=== PATIENT | female | born 1990 | race Caucasian/White ===

== ENCOUNTER 2017-01-18 17:58 | Emergency (ER) | payer OTHER ==
[~2017-01-18] VITALS: Ht 170.2 cm; Wt 57.2 kg
[2017-01-18] MEDS ORDERED: IV NORMAL SALINE 1000ML BAG 1,000 ML IV SCH (18:54)
--- NOTE | 2017-01-18 18:59 | PHYS DOC ---
Past Medical History Past Medical History: No Pertinent History Past Surgical History: Tonsillectomy Alcohol Use: None Drug Use: None Adult General Chief Complaint Chief Complaint: ABDOMINAL PAIN IN HPI HPI Patient is a 26 year old female who presents with complaint of nausea and vomiting. Patient is proximally 6 weeks estimated gestational age with last menstrual period on December 05, 2016 presents to the emergency department with complaint of persistent nausea and vomiting since today. Patient states that she has had mild nausea over the past couple weeks but symptoms started getting significantly worse today. Patient denies any abdominal pain or vaginal bleeding associated with symptoms. Patient has not taken any medications to help with her symptoms. Patient states that she is currently seeking a homebirth midwife for care as she plans on doing a home with her . Review of Systems Review of Systems Constitutional: Denies fever or chills [] Eyes: Denies change in visual acuity, redness, or eye pain [] HENT: Denies nasal congestion or sore throat [] Respiratory: Denies cough or shortness of breath [] Cardiovascular: No additional information not addressed in HPI [] GI: Nausea, vomiting, denies abdominal pain, bloody stools or diarrhea [] : Denies dysuria or hematuria [] Musculoskeletal: Denies back pain or joint pain [] Integument: Denies rash or skin lesions [] Neurologic: Denies headache, focal weakness or sensory changes [] ] Current Medications Current Medications Current Medications Medications (Trade) Dose Ordered Sig/[facility] Start Time Stop Time Status Last Admin Dose Admin Ondansetron HCl 4 mg 4 mg 1X ONCE 01/18/17 19:00 01/18/17 19:01 DC 01/18/17 19:19 4 MG Sodium Chloride (Iv Sodium Chloride 0.9% 1000ml Bag) 1,000 ml @ 1,000 mls/hr Q1H 01/18/17 18:54 01/18/17 19:53 DC 01/18/17 18:54 1,000 MLS/HR Allergies Allergies Allergies Coded Allergies Type Severity Reaction Last Updated Verified Penicillins Allergy Unknown 01/18/17 Yes Sulfa (Sulfonamide Antibiotics) Allergy Unknown 01/18/17 Yes Physical Exam Physical Exam Constitutional: Alert, afebrile, appears ill. [] HENT: Normocephalic, atraumatic, bilateral external ears normal, oropharynx moist, no oral exudates, nose normal. [] Eyes: PERRLA, EOMI, conjunctiva normal, no discharge. [] Neck: Normal range of motion, no tenderness, supple, no stridor. [] Cardiovascular:Heart rate regular rhythm, no murmur [] Lungs & Thorax: Bilateral breath sounds clear to auscultation [] Abdomen: Bowel sounds normal, soft, no tenderness, no masses, no pulsatile masses. Pelvic: Normal external exam, no purulent discharge in vaginal canal, cervical os closed, no cervical motion tenderness, mild midline tenderness to palpation on bimanual exam, no adnexal tenderness [] Skin: Warm, dry, no erythema, no rash. [] Back: No tenderness, no CVA tenderness. [] Extremities: No tenderness, no cyanosis, no clubbing, ROM intact, no edema. [] Neurologic: Alert and oriented X 3, normal motor function, normal sensory function, no focal deficits noted. [] Current Patient Data Vital Signs Vital Signs Date Time Temp Pulse Resp B/P Pulse Ox O2 Delivery O2 Flow Rate FiO2 01/18/17 20:40 90 14 95/53 99 Room Air 01/18/17 18:02 98.2 98.2 Lab Values Laboratory Tests Test 01/18/17 18:25 01/18/17 19:22 Maternal Serum HCG Beta Subunit 89539mYP/mL (0-6) H Sodium Level 136mmol/L (136-145) Potassium Level 4.0mmol/L (3.5-5.1) Chloride Level 100mmol/L (98-107) Carbon Dioxide Level 19mmol/L (21-32) L Anion Gap 17 (6-14) H Blood Urea Nitrogen 11mg/dL (7-20) Creatinine 0.8mg/dL (0.6-1.0) Estimated GFR (Cockcroft-Gault) 88.1 BUN/Creatinine Ratio 14 (6-20) Glucose Level 88mg/dL (70-99) Calcium Level 10.0mg/dL (8.5-10.1) Magnesium Level 2.0mg/dL (1.8-2.4) Total Bilirubin 0.8mg/dL (0.2-1.0) Aspartate Amino Transferase (AST) 15U/L (15-37) Alanine Aminotransferase (ALT) 17U/L (14-59) Alkaline Phosphatase 93U/L (46-116) Total Protein 9.3g/dL (6.4-8.2) H Albumin 5.0g/dL (3.4-5.0) Albumin/Globulin Ratio 1.2 (1.0-1.7) Urine Collection Type Unknown Urine Color Yellow Urine Clarity Clear Urine pH 5.5 Urine Specific [place] >=1.030 Urine Protein 30mg/dL (NEG-TRACE) Urine Glucose (UA) Negativemg/dL (NEG) Urine Ketones (Stick) >=80mg/dL (NEG) Urine Blood Negative (NEG) Urine Nitrite Negative (NEG) Urine Bilirubin Negative (NEG) Urine Urobilinogen Dipstick 0.2mg/dL (0.2 mg/dL) Urine Leukocyte Esterase Negative (NEG) Urine RBC Occ/HPF (0-2) Urine WBC 1-4/HPF (0-4) Urine Squamous Epithelial Cells Many/LPF Urine Bacteria Few/HPF (0-FEW) Urine Mucus Marked/LPF Laboratory Tests 01/18/17 18:25 Microbiology 01/18/17 Wet Prep - Final, Complete Microbiology 01/18/17 Wet Prep - Final, Complete EKG EKG Not performed [] Radiology/Procedures Radiology/Procedures [facility] [address] [place], [place] [id number] IMAGING REPORT Signed PATIENT: BAL PATINO ACCOUNT: [id number] : 1990 LOCATION: ER AGE: 26 SEX: F EXAM STATUS: REG ER ORD. PHYSICIAN: EMILY MCGINNIS MD REASON: patient is proximate 6 weeks , confirmed intrauterine PROCEDURE: OB <14 WKS W/TV PROCEDURE OB ultrasound less than 14 weeks to include transabdominal and transvaginal imaging 01/18/2017 HISTORY First trimester with pelvic pain. TECHNIQUE Using the distended urinary bladder as a sonographic window, a real-time ultrasound examination of the pelvis was performed. Additionally in an attempt to better evaluate the uterus and adnexa, a transvaginal ultrasound study was performed. Multiple images were obtained. FINDINGS A gestational sac is seen within the endometrial canal within the body/fundus of the uterus. Within this gestational sac a yolk sac is seen. No embryonic pole is noted to confirm a living IUP at this time. The mean sac diameter is 1.35 centimeters. This corresponds to an estimated gestational age by ultrasound of 6 weeks 2 days plus or minus a standard deviation 5 days. The uterus is otherwise within normal limits. Both ovaries are within normal limits in size. The right ovary measures 3.1 x 2.3 x 2.1 centimeters in size. The left ovary measures 2.8 x 1.7 x 1.3 centimeters in size. Within the right ovary a 2.2 centimeter hypoechoic area is seen which likely represents a hemorrhagic corpus luteum. No free fluid is seen. IMPRESSION Findings are seen consistent most likely with an early IUP as outlined above. Electronically signed by: Earnest Nicolas MD (Jan 18, 2017 21:00:54) DICTATED and SIGNED BY: EARNEST NICOLAS MD DATE: 01/18/172099 CC: EMILY MCGINNIS MD; NO PCP ~ [] Course & Med Decision Making Course & Med Decision Making Pertinent Labs and Imaging studies reviewed. (See chart for details) Patient was given IV fluids and Zofran in the emergency department with improvement in symptoms. Patient was found to have bacterial vaginosis on wet prep and will be treated with MetroGel for one week for treatment. Patient's ultrasound appears consistent with early intrauterine . Advised patient follow-up in one week with COMMUNICATIONS COORDINATOR and recommended return emergency department for any worsening symptoms. Patient was understanding and in agreement with treatment plan. Dragon Disclaimer Dragon Disclaimer This electronic medical record was generated, in whole or in part, using a voice recognition dictation system. Departure Departure Impression: Primary Impression: Bacterial vaginosis Additional Impression: Vomiting during Disposition: 01 HOME, SELF-CARE Condition: IMPROVED Referrals: GEORGIA HUNT MD Patient Instructions: Bacterial Vaginosis, Nausea and Vomiting Additional Instructions: Follow-up with COMMUNICATIONS COORDINATOR in the next week. Return to the emergency department for any worsening symptoms. Scripts Ondansetron (Zofran Odt)4 Mg Tab.rapdis1 Tab SL Q8HRS PRN NAUSEA/VOMITING #15 TAB Prov:EMILY MCGINNIS MD 01/18/17 Metronidazole (Metrogel-Vaginal)70 Gm Gel.w.appl1 Appful VG QHS 7 Days Prov:EMILY MCGINNIS MD 01/18/17 Problem Qualifiers EMILY MCGINNIS MD Jan 18, 2017 18:59
[2017-01-18] MEDS ORDERED: ONDANSETRON PF 4 MG/2 ML VIAL. IV ONE (19:00)
[2017-01-18 19:15] LABS: CREATININE 0.8 mg/dL (0.6-1.0); GFR 88.1
[2017-01-18 19:22] LABS: ALBUMIN/GLOBULIN RATIO 1.2 (1.0-1.7); TOTAL BILIRUBIN 0.8 mg/dL (0.2-1.0); TOTAL PROTEIN 9.3 g/dL (6.4-8.2)
[2017-01-18 19:55] LABS: BACTERIA,URINE FEW /HPF (0-FEW); BILIRUBIN,URINE NEGATIVE (NEG); GLUCOSE,URINE NEGATIVE (NEG); NITRITE,URINE NEGATIVE (NEG); PH,URINE 5.5; PROTEIN,URINE 30 mg/dL (NEG-TRACE); RBC,URINE OCC /HPF (0-2); SQUAMOUS EPITHELIAL CELL,UR MANY /LPF; UROBILINOGEN,URINE 0.2 mg/dL (0.2 mg/dL)
[2017-01-18 20:43] LABS: BASO # 0.1 x10^3/uL (0.0-0.2); BASO % 0 % (0-3); EOS % 0 % (0-3); HEMATOCRIT 37.4 % (36.0-47.0); HEMOGLOBIN 11.9 g/dL (12.0-15.5); LYMPH # 1.6 x10^3/uL (1.0-4.8); LYMPH % 11 % (24-48); MEAN CORPUSCULAR HEMOGLOBIN 27 pg (25-35); MEAN CORPUSCULAR HGB CONC 32 g/dL (31-37); MEAN CORPUSCULAR VOLUME 83 fL (79-100); MONO % 3 % (0-9); NEUT % 86 % (31-73); RED CELL DISTRIBUTION WIDTH 13.8 % (11.5-14.5); WHITE BLOOD COUNT 15.2 x10^3/uL (4.0-11.0)
[2017-01-18] MEDS ORDERED: ONDA4TAB10 SL (20:46)
[2017-01-18] MEDS ORDERED: METR70GE14 VG (20:46)
[2017-01-18 21:00] VITALS: BP 101/56
--- NOTE | 2017-01-18 21:01 | RAD ---
PROCEDURE OB ultrasound less than 14 weeks to include transabdominal and transvaginal imaging 01/18/2017 HISTORY First trimester with pelvic pain. TECHNIQUE Using the distended urinary bladder as a sonographic window, a real-time ultrasound examination of the pelvis was performed. Additionally in an attempt to better evaluate the uterus and adnexa, a transvaginal ultrasound study was performed. Multiple images were obtained. FINDINGS A gestational sac is seen within the endometrial canal within the body/fundus of the uterus. Within this gestational sac a yolk sac is seen. No embryonic pole is noted to confirm a living IUP at this time. The mean sac diameter is 1.35 centimeters. This corresponds to an estimated gestational age by ultrasound of 6 weeks 2 days plus or minus a standard deviation 5 days. The uterus is otherwise within normal limits. Both ovaries are within normal limits in size. The right ovary measures 3.1 x 2.3 x 2.1 centimeters in size. The left ovary measures 2.8 x 1.7 x 1.3 centimeters in size. Within the right ovary a 2.2 centimeter hypoechoic area is seen which likely represents a hemorrhagic corpus luteum. No free fluid is seen. IMPRESSION Findings are seen consistent most likely with an early IUP as outlined above. Electronically signed by: Earnest Nicolas MD (Jan 18, 2017 21:00:54)
[2017-01-18 21:27] LABS: PLT ESTIMATE ADEQUATE (ADEQUATE)
[2017-01-18 21:30] LABS: TOXIC GRANULATION SLIGHT
== END 2017-01-18 21:15 | disposition home or self-care (01) ==
LOC: ER 17:58
DX: O21.0 Mild hyperemesis gravidarum (principal); O23.591 Infection of other part of genital tract in pregnancy, first trimester; N76.0 Acute vaginitis; B96.89 Other specified bacterial agents as the cause of diseases classified elsewhere; Z88.0 Allergy status to penicillin; Z88.2 Allergy status to sulfonamides; Z3A.01 Less than 8 weeks gestation of pregnancy
CPT/HCPCS: 76801; 76817; 80053; 81001; 83735; 84702; 85007; 85027; 96361; 96374; 99285; J2405; J7030; Q0111; 81025

== ENCOUNTER 2017-03-17 20:15 | Emergency (ER) | payer OTHER ==
[~2017-03-17] VITALS: Ht 157.5 cm; Wt 54.4 kg
[~2017-03-17 20:15] MED LIST: METR70GE14 VG; ONDA4TAB10 SL
[2017-03-17 20:20] VITALS: BP 127/85
[2017-03-17] MEDS ORDERED: IV NORMAL SALINE 1000ML BAG 1,000 ML IV ONE (20:45)
--- NOTE | 2017-03-17 20:48 | PHYS DOC ---
Past Medical History Past Medical History: No Pertinent History Past Surgical History: Tonsillectomy Alcohol Use: None Drug Use: None Adult General Chief Complaint Chief Complaint: ABDOMINAL PAIN IN HPI HPI Patient is a 26 year old female 3 para 2 who is currently 14 weeks who presents today to the ED with mild right sided abdominal cramping that began this afternoon. Patient denies any vaginal bleeding. Denies any nausea vomiting. Denies any urgency frequency dysuria. She states she follows up with a cap parts cutter who sees her at home because she is going to have a home delivery. Review of Systems Review of Systems Constitutional: Denies fever or chills [] Eyes: Denies change in visual acuity, redness, or eye pain [] HENT: Denies nasal congestion or sore throat [] Respiratory: Denies cough or shortness of breath [] Cardiovascular: No additional information not addressed in HPI [] GI: Right sided abdominal cramping : Denies dysuria or hematuria [] Musculoskeletal: Denies back pain or joint pain [] Integument: Denies rash or skin lesions [] Neurologic: Denies headache, focal weakness or sensory changes [] Endocrine: Denies polyuria or polydipsia [] Current Medications Current Medications Current Medications Medications (Trade) Dose Ordered Sig/[facility] Start Time Stop Time Status Last Admin Dose Admin Clindamycin Phosphate 50 ml @ 100 mls/hr 1X ONCE 03/17/17 21:30 03/17/17 21:59 DC 03/17/17 21:30 100 MLS/HR Sodium Chloride 1,000 ml @ 1,000 mls/hr 1X ONCE 03/17/17 20:45 03/17/17 21:44 DC 03/17/17 20:45 1,000 MLS/HR Allergies Allergies Allergies Coded Allergies Type Severity Reaction Last Updated Verified Penicillins Allergy Intermediate 03/17/17 Yes Sulfa (Sulfonamide Antibiotics) Allergy Intermediate 03/17/17 Yes Physical Exam Physical Exam Constitutional: Well developed, well nourished, no acute distress, non-toxic appearance. [] HENT: Normocephalic, atraumatic, bilateral external ears normal, oropharynx moist, no oral exudates, nose normal. [] Eyes: PERRLA, EOMI, conjunctiva normal, no discharge. [] Neck: Normal range of motion, no tenderness, supple, no stridor. [] Cardiovascular:Heart rate regular rhythm, no murmur [] Lungs & Thorax: Bilateral breath sounds clear to auscultation [] Abdomen: Bowel sounds normal, soft, tenderness diffusely on the right side of the abdomen mostly on the middle of the abdomen, no masses, no pulsatile masses. Negative Richey sign, negative psoas sign, negative obturator sign. Patient is guarding her right flank region. Pelvic exam External pelvic appears normal. Cervix is closed, no CMT. Trace amount of white discharge in the vaginal vault. No adnexal tenderness. Skin: Warm, dry, no erythema, no rash. [] Back: No tenderness, mild right CVA tenderness. [] Extremities: No tenderness, no cyanosis, no clubbing, ROM intact, no edema. [] Neurologic: Alert and oriented X 3, normal motor function, normal sensory function, no focal deficits noted. [] Psychologic: Affect normal, judgement normal, mood normal. [] Current Patient Data Vital Signs Vital Signs Date Time Temp Pulse Resp B/P (MAP) Pulse Ox O2 Delivery O2 Flow Rate FiO2 03/17/17 20:20 99.0 109 16 127/85 (99) 98 Room Air 99.0 Lab Values Laboratory Tests Test 03/17/17 19:52 03/17/17 20:30 03/17/17 20:45 POC Urine HCG, Qualitative Hcg positive (Negative) Urine Collection Type Unknown Urine Color Yellow Urine Clarity Clear Urine pH 5.5 Urine Specific [place] >=1.030 Urine Protein Negative mg/dL (NEG-TRACE) Urine Glucose (UA) Negative mg/dL (NEG) Urine Ketones (Stick) Negative mg/dL (NEG) Urine Blood Negative (NEG) Urine Nitrite Negative (NEG) Urine Bilirubin Negative (NEG) Urine Urobilinogen Dipstick 1.0 mg/dL (0.2 mg/dL) Urine Leukocyte Esterase Moderate (NEG) Urine RBC 0 /HPF (0-2) Urine WBC 5-10 /HPF (0-4) Urine Squamous Epithelial Cells Mod /LPF Urine Bacteria Moderate /HPF (0-FEW) Urine Mucus Marked /LPF White Blood Count 9.6 x10^3/uL (4.0-11.0) Red Blood Count 4.78 x10^6/uL (3.50-5.40) Hemoglobin 12.9 g/dL (12.0-15.5) Hematocrit 39.1 % (36.0-47.0) Mean Corpuscular Volume 82 fL (79-100) Mean Corpuscular Hemoglobin 27 pg (25-35) Mean Corpuscular Hemoglobin Concent 33 g/dL (31-37) Red Cell Distribution Width 15.1 % (11.5-14.5) H Platelet Count 124 x10^3/uL (140-400) L Neutrophils (%) (Auto) 68 % (31-73) Lymphocytes (%) (Auto) 25 % (24-48) Monocytes (%) (Auto) 6 % (0-9) Eosinophils (%) (Auto) 1 % (0-3) Basophils (%) (Auto) 0 % (0-3) Neutrophils # (Auto) 6.5 x10^3uL (1.8-7.7) Lymphocytes # (Auto) 2.4 x10^3/uL (1.0-4.8) Monocytes # (Auto) 0.6 x10^3/uL (0.0-1.1) Eosinophils # (Auto) 0.1 x10^3/uL (0.0-0.7) Basophils # (Auto) 0.0 x10^3/uL (0.0-0.2) Maternal Serum HCG Beta Subunit 37468 mIU/mL (0-6) H Sodium Level 139 mmol/L (136-145) Potassium Level 3.3 mmol/L (3.5-5.1) L Chloride Level 105 mmol/L (98-107) Carbon Dioxide Level 24 mmol/L (21-32) Anion Gap 10 (6-14) Blood Urea Nitrogen 7 mg/dL (7-20) Creatinine 0.6 mg/dL (0.6-1.0) Estimated GFR (Cockcroft-Gault) 122.8 BUN/Creatinine Ratio 12 (6-20) Glucose Level 115 mg/dL (70-99) H Calcium Level 8.7 mg/dL (8.5-10.1) Total Bilirubin 0.2 mg/dL (0.2-1.0) Aspartate Amino Transferase (AST) 14 U/L (15-37) L Alanine Aminotransferase (ALT) 16 U/L (14-59) Alkaline Phosphatase 77 U/L (46-116) Total Protein 7.0 g/dL (6.4-8.2) Albumin 3.5 g/dL (3.4-5.0) Albumin/Globulin Ratio 1.0 (1.0-1.7) Lipase 175 U/L (73-393) Laboratory Tests 03/17/17 20:45 Laboratory Tests 03/17/17 20:45 Microbiology 03/17/17 Wet Prep - Final, Complete Laboratory Tests Test 03/17/17 19:52 03/17/17 20:30 03/17/17 20:45 POC Urine HCG, Qualitative Hcg positive (Negative) Urine Collection Type Unknown Urine Color Yellow Urine Clarity Clear Urine pH 5.5 Urine Specific [place] >=1.030 Urine Protein Negative mg/dL (NEG-TRACE) Urine Glucose (UA) Negative mg/dL (NEG) Urine Ketones (Stick) Negative mg/dL (NEG) Urine Blood Negative (NEG) Urine Nitrite Negative (NEG) Urine Bilirubin Negative (NEG) Urine Urobilinogen Dipstick 1.0 mg/dL (0.2 mg/dL) Urine Leukocyte Esterase Moderate (NEG) Urine RBC 0 /HPF (0-2) Urine WBC 5-10 /HPF (0-4) Urine Squamous Epithelial Cells Mod /LPF Urine Bacteria Moderate /HPF (0-FEW) Urine Mucus Marked /LPF White Blood Count 9.6 x10^3/uL (4.0-11.0) Red Blood Count 4.78 x10^6/uL (3.50-5.40) Hemoglobin 12.9 g/dL (12.0-15.5) Hematocrit 39.1 % (36.0-47.0) Mean Corpuscular Volume 82 fL (79-100) Mean Corpuscular Hemoglobin 27 pg (25-35) Mean Corpuscular Hemoglobin Concent 33 g/dL (31-37) Red Cell Distribution Width 15.1 % (11.5-14.5) H Platelet Count 124 x10^3/uL (140-400) L Neutrophils (%) (Auto) 68 % (31-73) Lymphocytes (%) (Auto) 25 % (24-48) Monocytes (%) (Auto) 6 % (0-9) Eosinophils (%) (Auto) 1 % (0-3) Basophils (%) (Auto) 0 % (0-3) Neutrophils # (Auto) 6.5 x10^3uL (1.8-7.7) Lymphocytes # (Auto) 2.4 x10^3/uL (1.0-4.8) Monocytes # (Auto) 0.6 x10^3/uL (0.0-1.1) Eosinophils # (Auto) 0.1 x10^3/uL (0.0-0.7) Basophils # (Auto) 0.0 x10^3/uL (0.0-0.2) Maternal Serum HCG Beta Subunit 24776 mIU/mL (0-6) H Sodium Level 139 mmol/L (136-145) Potassium Level 3.3 mmol/L (3.5-5.1) L Chloride Level 105 mmol/L (98-107) Carbon Dioxide Level 24 mmol/L (21-32) Anion Gap 10 (6-14) Blood Urea Nitrogen 7 mg/dL (7-20) Creatinine 0.6 mg/dL (0.6-1.0) Estimated GFR (Cockcroft-Gault) 122.8 BUN/Creatinine Ratio 12 (6-20) Glucose Level 115 mg/dL (70-99) H Calcium Level 8.7 mg/dL (8.5-10.1) Total Bilirubin 0.2 mg/dL (0.2-1.0) Aspartate Amino Transferase (AST) 14 U/L (15-37) L Alanine Aminotransferase (ALT) 16 U/L (14-59) Alkaline Phosphatase 77 U/L (46-116) Total Protein 7.0 g/dL (6.4-8.2) Albumin 3.5 g/dL (3.4-5.0) Albumin/Globulin Ratio 1.0 (1.0-1.7) Lipase 175 U/L (73-393) Laboratory Tests 03/17/17 20:45 Laboratory Tests 03/17/17 20:45 Microbiology 03/17/17 Wet Prep - Final, Complete EKG EKG [] Radiology/Procedures Radiology/Procedures [] Course & Med Decision Making Course & Med Decision Making Pertinent Labs and Imaging studies reviewed. (See chart for details) This is a 3 para 2, 26 year old female currently 14 weeks who presents today with right-sided abdominal cramping that began this afternoon. Patient denies any vaginal bleeding. She follows up with a cap parts cutter who sees her at home because she plans to have a home delivery and states she does not take any medicines because she is trying to avoid anything artificial that can interfere with her . Urine analysis shows patient has urinary tract infection. I spoke to patient. She accepted antibiotics and IV fluids. We gave her clindamycin and a liter fluid. I ordered OB ultrasound>14 as well as abdominal ultrasound to make sure patient does not have appendicitis do to this right-sided abdominal cramping. 20:[address], they state teletype technician is at [facility]. They states she is aware of the ultrasound ordered and she will do it as soon as she gets back to [place]. Spoke to ultrasound take was in house from [facility]. Requested her to do a limited ultrasound on the right lower quadrant to rule out appendicitis as well as an OB ultrasound. 22:[address] Sargent Reevaluated by me at approximately 10:30 PM when ultrasound results been returned demonstrate any clear IUP 14 weeks with no suspected palpitation. At this point patient and I discussed ultrasound results as well as urinalysis results shows a clear signs of UTI. Patient's belly exam showed mild marked tenderness over the suprapubic region no clear right lower quadrant tenderness Richey's or McBurney's point tenderness palpation patient afebrile with no white count we did talk about possible appendicitis as a cause for belly pain. Given non-peritoneal signs and no white count and no fever I will treat her with her Macrobid for the UTI and have her follow-up for an abdominal evaluation by her cap parts cutter and FOUNTAIN WAITRESS/WAITER in 12-24 hours. We talked about the risk inherent to the baby if appendicitis is missed she is going to follow up with her primary care doctor. Impression: Threatened miscarriage, UTI, abdominal pain with the disposition discharged home with Macrobid, Tylenol, Zofran PCP/[employer] WA[employer]RESS/WAITER follow- up in 12-24 hours for repeat abdominal wall examination. Dragon Disclaimer Dragon Disclaimer This electronic medical record was generated, in whole or in part, using a voice recognition dictation system. Departure Departure Impression: Primary Impression: Urinary tract infection affecting Disposition: 01 HOME, SELF-CARE Condition: STABLE Referrals: NO PCP (PCP) Patient Instructions: Abdominal Pain During , Nausea and Vomiting, - Urinary Tract Infection Additional Instructions: His follow-up with her FOUNTAIN WAITRESS/WAITER or her cap parts cutter next 12-24 hours for repeat abdominal wall examination. Although there is no obvious signs of appendicitis appendicitis can be an immediate threat to her baby and the viability of the . AccordingLY I would encourage return immediately for any new or increased symptoms inability to tolerate food by mouth fluids by mouth fevers greater 102.2 with all pain increasing in the right lower quadrant of the abdomen. Would you please use medications to treat your urinary tract infection as this also is a threat the viability of the Scripts Nitrofurantoin Monohyd/M-Cryst (MACROBID 100 MG CAPSULE) 100 Mg Capsule 1 CAP PO BID, #20 CAP Prov: MARISOL SARGENT MD 03/17/17 Ondansetron (ZOFRAN ODT) 4 Mg Tab.rapdis 4 MG PO BID Y for NAUSEA/VOMITING for 7 Days, #14 TAB Prov: MARISOL SARGENT MD 03/17/17 Acetaminophen (TYLENOL) 325 Mg Tablet 1-2 TAB PO QID, #60 TAB 2 Refills Prov: MARISOL SARGENT MD 03/17/17 AMINATA BEJARANO APRN Mar 17, 2017 20:48 MARISOL SARGENT MD Mar 17, 2017 23:16
[2017-03-17 20:55] LABS: BASO % 0 % (0-3); EOS % 1 % (0-3); HEMATOCRIT 39.1 % (36.0-47.0); HEMOGLOBIN 12.9 g/dL (12.0-15.5); LYMPH # 2.4 x10^3/uL (1.0-4.8); LYMPH % 25 % (24-48); MEAN CORPUSCULAR HEMOGLOBIN 27 pg (25-35); MEAN CORPUSCULAR HGB CONC 33 g/dL (31-37); MEAN CORPUSCULAR VOLUME 82 fL (79-100); MONO % 6 % (0-9); NEUT % 68 % (31-73); RED BLOOD COUNT 4.78 x10^6/uL (3.50-5.40); RED CELL DISTRIBUTION WIDTH 15.1 % (11.5-14.5); WHITE BLOOD COUNT 9.6 x10^3/uL (4.0-11.0)
[2017-03-17 20:57] LABS: BILIRUBIN,URINE NEGATIVE (NEG); GLUCOSE,URINE NEGATIVE (NEG); NITRITE,URINE NEGATIVE (NEG); PH,URINE 5.5; PROTEIN,URINE NEGATIVE (NEG-TRACE)
[2017-03-17 21:02] LABS: BACTERIA,URINE MODERATE /HPF (0-FEW); RBC,URINE 0 /HPF (0-2); SQUAMOUS EPITHELIAL CELL,UR MOD /LPF
[2017-03-17 21:08] LABS: CALCIUM 8.7 mg/dL (8.5-10.1); CREATININE 0.6 mg/dL (0.6-1.0); GFR 122.8; POTASSIUM 3.3 mmol/L (3.5-5.1)
[2017-03-17 21:14] LABS: ALBUMIN 3.5 g/dL (3.4-5.0); TOTAL BILIRUBIN 0.2 mg/dL (0.2-1.0)
[2017-03-17 21:25] LABS: PLATELET COUNT 124 x10^3/uL (140-400)
[2017-03-17] MEDS ORDERED: CLINDAMYCIN 900MG PREMIX 50 ML IV ONE (21:30)
--- NOTE | 2017-03-17 22:35 | RAD ---
Examination: Ultrasound first trimester and ultrasound abdomen limited HISTORY: History of right lower quadrant pain comparison: 01/18/2017 FINDINGS: The uterus measures 10.0 x 10.0 x 10.0 cm. The right ovary measures 2.2 x 2.2 x 2.0 cm. The left ovary is not identified. Single living intrauterine identified heart rate of 158 bpm. Placenta is in anterior wall and low lying. Amniotic fluid is normal. The biparietal diameter measures 2.6 cm corresponding to 14 weeks and 4 days +/- 8 days. Head circumference measures 10.2 cm corresponding to 14 weeks and 6 days +/- 8 days. Abdominal circumference measures 8.7 cm corresponding to 15 weeks and 0 days +/- 12 days. Femur length measures 1.43 cm corresponding to 14 weeks and 2 days +/- 10 days. Head circumference to abdominal circumference ratio 1.16 femur length to biparietal diameter ratio 54.4 femur length to head circumference 14.0 Femur length to abdominal circumference 16.3. LMP 12/05/2016 Clinical age 14 weeks and 4 days with estimated date of delivery 09/11/2017 by LMP. Ultrasound age is 14 weeks and 5 days with date of delivery by ultrasound 09/10/2017. 1.1 cm corpus luteal cyst identified in the right ovary. The appendix could not be identified. IMPRESSION: 1. Single living intrauterine with heart rate of 158 bpm. Gestational age is 14 weeks and 5 days. 2. The left ovary could not be identified. 1.1 cm probable corpus luteal cyst identified in the right ovary. 3. Appendix could not be identified. Electronically signed by: Gary Tucker MD (03/17/2017 10:31 PM)
[2017-03-17] MEDS ORDERED: NITR100C62 PO (23:16)
[2017-03-17] MEDS ORDERED: ACET325T9 PO (23:16)
[2017-03-17] MEDS ORDERED: ONDA4TAB10 PO (23:16)
[2017-03-17] MEDS ORDERED: NITROFURANTOIN MONOHYD/M-CRYST 100 MG CAPSULE. PO ONE (23:30)
== END 2017-03-17 23:31 | disposition home or self-care (01) ==
LOC: ER 20:15
DX: O23.42 Unspecified infection of urinary tract in pregnancy, second trimester (principal); Z3A.14 14 weeks gestation of pregnancy; Z88.0 Allergy status to penicillin; Z88.2 Allergy status to sulfonamides
CPT/HCPCS: 36415; 76705; 76801; 80053; 81001; 81025; 83690; 84702; 85027; 87086; 87491; 87591; 96361; 96365; 99285; J3490; J7030; Q0111

== ENCOUNTER 2017-07-06 19:02 | Observation (INO) | payer OTHER ==
[~2017-07-06 19:02] MED LIST changes: +ACET325T9 PO; +NITR100C62 PO; +ONDA4TAB10 PO
[2017-07-06 20:04] LABS: BILIRUBIN,URINE NEGATIVE (NEG); GLUCOSE,URINE 100 mg/dL (NEG); NITRITE,URINE NEGATIVE (NEG); PROTEIN,URINE NEGATIVE (NEG-TRACE); UROBILINOGEN,URINE 0.2 mg/dL (0.2 mg/dL)
[2017-07-06 20:32] LABS: BACTERIA,URINE MANY /HPF (0-FEW); SQUAMOUS EPITHELIAL CELL,UR MANY /LPF; WBC,URINE >40 /HPF (0-4); YEAST,URINE PRESENT /HPF
== END 2017-07-06 20:42 | disposition home or self-care (01) ==
LOC: 3 SO LND 19:02
PROVIDERS: ADMIT Obstetrics & Gynecology; ATTEND Obstetrics & Gynecology
DX: O36.8130 Decreased fetal movements, third trimester, not applicable or unspecified (principal); Z3A.30 30 weeks gestation of pregnancy
CPT/HCPCS: 81001; 87086; G0378; G0379

== ENCOUNTER → 2017-07-25 | Outpatient (CLI) | payer OTHER ==
--- NOTE | 2017-07-25 10:45 | KCIC ---
OB ultrasound dated 07/25/2017: No comparison available. Clinical Indication: Follow-up low-lying placenta. Findings: There is a single intrauterine gestation in cephalic presentation. The placenta is anterior and fundal in location. No evidence of placental previa. ELE equals 13.2 cm. Cervix not well evaluated. Biometrical data is as follows: BPD = 8.3 cm for 33 weeks 2 days. HC = 29.6 cm for 32 weeks 5 days. AC = 29.0 cm for 33 weeks 0 days. FL = 6.4 cm for 33 weeks 2 days. Overall, the estimated sonographic gestational age is 33 weeks 1 day for an estimated date of delivery of 09/11/2017. This correlates with dates estimated by the last menstrual period. Estimated weight is 2117 g. Complete survey was not performed. heart rate 132 bpm. HC/AC ratio equals 1.02. Impression: 1. Single viable intrauterine gestation with estimated sonographic gestational age of 33 weeks 1 day. 2. No evidence of placental previa.. Electronically signed by: Stewart Abraham MD (07/25/2017 10:41 AM) [id number]
== END | disposition home or self-care (01) ==
LOC: KCIC US 08:42
PROVIDERS: ATTEND Midwife
DX: O44.43 Low lying placenta NOS or without hemorrhage, third trimester (principal); Z3A.33 33 weeks gestation of pregnancy
CPT/HCPCS: 76816